=== PATIENT | male | born 1985 | race Caucasian/White ===

== ENCOUNTER 2022-07-23 01:44 | Emergency (ER) | payer MEDICAID ==
[~2022-07-23] VITALS: Ht 185.4 cm; Wt 91.0 kg
[2022-07-23] MEDS ORDERED: KETOROLAC 30MG/ML VIAL IV STA (02:08)
[2022-07-23] MEDS ORDERED: ONDANSETRON HCL 4MG/2ML INJ IV STA (02:08)
[2022-07-23] MEDS ORDERED: SODIUM CHLORIDE 0.9% 1,000 ML IV ONE (02:15)
[2022-07-23 04:30] LABS: BASOPHILS % 0.1 % (0.0-2.0); EOSINOPHILS % 0.3 % (0.0-5.0); HEMOGLOBIN. 13.3 g/dL (14.0-18.0); LYMPHOCYTES % 8.3 % (20.0-50.0); MEAN CORPUSCULAR HEMOGLOBIN 29.9 pg (28.0-32.0); MEAN CORPUSCULAR VOLUME 89.8 fL (80.0-94.0); MEAN PLATELET VOLUME 7.1 fl (7.4-10.4); MONOCYTES % 3.8 % (2.0-8.0); NEUTROPHILS % 87.5 % (40.0-76.0); PLATELET 278 x1000/uL (130-400); RED BLOOD CELL COUNT 4.45 mill/uL (4.7-6.1); RED CELL DISTRIBUTION WIDTH 13.1 % (11.6-14.6)
[2022-07-23 04:38] LABS: CHLORIDE 108 mEq/L (98-107)
[2022-07-23 07:20] VITALS: BP 109/72
== END 2022-07-23 07:55 | disposition home or self-care (01) ==
LOC: ER 01:44
DX: R10.9 Unspecified abdominal pain (principal); R11.2 Nausea with vomiting, unspecified
CPT/HCPCS: 36415; 74176; 80053; 83690; 85025; 96361; 96374; 96375; 99285; J1885; J2405; J7030

== ENCOUNTER 2022-10-22 02:59 | Emergency (ER) | payer MEDICAID, OTHER ==
[~2022-10-22] VITALS: Ht 185.4 cm; Wt 91.0 kg
[2022-10-22 04:41] VITALS: O2SAT 100
[2022-10-22 05:06] LABS: CLARITY URINE CLEAR (CLEAR); COLOR URINE YELLOW (YELLOW); GLUCOSE URINE NEGATIVE (NEGATIVE); KETONES URINE NEGATIVE (NEGATIVE); LEUKOCYTE ESTERASE URINE NEGATIVE (NEGATIVE); NITRITE URINE NEGATIVE (NEGATIVE); OCCULT BLOOD URINE NEGATIVE (NEGATIVE); PROTEIN URINE TRACE (NEGATIVE); SPECIFIC GRAVITY URINE 1.024 (1.005-1.030)
[2022-10-22 05:09] LABS: BACTERIA URINE NONE SEEN; SQUAMOUS EPITHELIAL CELL URINE NONE SEEN /lpf (RARE/1+); WBC URINE 0-2 /hpf (0-2); YEAST URINE NONE SEEN
[2022-10-22 05:20] LABS: BASOPHILS % 0.2 % (0.0-2.0); EOSINOPHILS % 0.5 % (0.0-5.0); HEMATOCRIT. 40.9 % (42.0-52.0); HEMOGLOBIN. 13.6 g/dL (14.0-18.0); LYMPHOCYTES % 10.1 % (20.0-50.0); MEAN CORPUSCULAR HEMOGLOBIN 29.9 pg (28.0-32.0); MEAN CORPUSCULAR HGB CONC 33.2 g/dL (31.0-37.0); MEAN CORPUSCULAR VOLUME 90.1 fL (80.0-94.0); MEAN PLATELET VOLUME 7.1 fl (7.4-10.4); MONOCYTES % 4.1 % (2.0-8.0); NEUTROPHILS % 85.1 % (40.0-76.0); PLATELET 235 x1000/uL (130-400); RED BLOOD CELL COUNT 4.54 mill/uL (4.7-6.1); RED CELL DISTRIBUTION WIDTH 13.2 % (11.6-14.6); WHITE BLOOD COUNT 11.5 x1000/uL (4.5-11.0)
[2022-10-22 05:23] LABS: *AMPHETAMINES SCREEN URINE NEGATIVE (NEGATIVE); *BARBITURATES SCREEN URINE NEGATIVE (NEGATIVE); *BENZODIAZEPINES SCREEN URINE NEGATIVE (NEGATIVE); *COCAINE SCREEN URINE PRESUMTIVE POSITIVE (NEGATIVE); CANNABINOID URINE SCREEN PRESUMTIVE POSITIVE (NEGATIVE); ECSTASY MDMA SCREEN URINE NEGATIVE (NEGATIVE); METHADONE URINE SCREEN NEGATIVE (NEGATIVE); OPIATES URINE SCREEN NEGATIVE (NEGATIVE); PHENCYCLIDINE URINE SCREEN NEGATIVE (NEGATIVE)
[2022-10-22 05:34] LABS: CHLORIDE 106 mEq/L (98-107); INDEX HEMOLYSI 1 (1-3); INDEX ICTERIC 1 (1-4); INDEX LIPEMIC 1 (1-3); POTASSIUM 3.6 mEq/L (3.5-5.1); SODIUM 139 mEq/L (136-145)
[2022-10-22 05:47] LABS: ALANINE AMINOTRANSFERASE 20 IU/L (13-61); ALBUMIN 3.7 g/dL (3.4-5.0); ASPARTATE AMINOTRANSFERASE 14 IU/L (15-37); BILIRUBIN TOTAL 0.3 mg/dL (0.1-1.0); CALCIUM 8.5 mg/dL (8.5-10.1); CARBON DIOXIDE 28 mEq/L (21-32); CREATININE 0.8 mg/dL (0.6-1.3); ETHANOL BLOOD < 10 mg/dL (-10); GLUCOSE 133 mg/dL (70-105); PROTEIN TOTAL 6.9 g/dL (6.0-8.3); TROPONIN I HIGH SENSITIVITY < 4 ng/L (<78); UREA NITROGEN BLOOD 9 mg/dL (7-21)
[2022-10-22] MEDS ORDERED: ONDANSETRON HCL 4MG/2ML INJ IV STA (07:00)
[2022-10-22] MEDS ORDERED: MORPHINE SULFATE 4 MG/ML CPJ (NOT FOR IM USE) IV STA (07:00)
[2022-10-22] MEDS ORDERED: FAMOTIDINE 20MG/2ML VIAL IV STA (07:00)
[2022-10-22 07:11] LABS: RBC URINE 0-2 /hpf (0-2)
[2022-10-22] MEDS ORDERED: MORPHINE SULFATE 4 MG/ML CPJ (NOT FOR IM USE) IV NR (08:45)
[2022-10-22] MEDS ORDERED: ONDANSETRON HCL 4MG/2ML INJ IV NR (08:45)
[2022-10-22] MEDS ORDERED: FAMOTIDINE 20MG/2ML VIAL IV NR (08:45)
[2022-10-22] MEDS ORDERED: MORPHINE SULFATE 4 MG/ML CPJ (NOT FOR IM USE) IV ONE ×2 (09:30→11:00)
[2022-10-22 13:34] VITALS: BP 120/84; PULSE 72; RESP 16; TEMP 98.5
== END 2022-10-22 14:49 | disposition left against medical advice (07) ==
LOC: ER 02:59 → EDBEDREQSVC 11:03 → EDBEDREQ 11:03 → EDBEDREQTM 11:03 → CANBEDREQ 14:36 → ER 14:49
DX: K80.20 Calculus of gallbladder without cholecystitis without obstruction (principal)
CPT/HCPCS: 80053; 80305; 81003; 80320; 83690; 85025; 84484; 36415; 74176; 76705; 93005; 96374; 96375; 99285; J3490; J2405; J2270; G0480

== ENCOUNTER 2023-02-09 05:54 | Emergency (ER) | payer MEDICAID ==
[~2023-02-09] VITALS: Ht 185.4 cm; Wt 91.0 kg
[2023-02-09 06:06] VITALS: BP 130/78; PULSE 60; RESP 18; TEMP 98.3; O2SAT 99
[2023-02-09] MEDS ORDERED: KETOROLAC 30MG/ML VIAL IV STA (07:21)
[2023-02-09] MEDS ORDERED: ONDANSETRON HCL 4MG/2ML INJ IV STA (07:21)
== END 2023-02-09 15:03 | disposition left against medical advice (07) ==
LOC: ER 06:03 → EDBEDREQ 09:42 → ER 15:03
DX: K80.20 Calculus of gallbladder without cholecystitis without obstruction (principal)
CPT/HCPCS: 76705; 99284